=== PATIENT | female | born 1990 | race Two or more races ===

== ENCOUNTER 2017-02-06 11:10 | Emergency (ER) | payer SELFPAY ==
[2017-02-06 11:21] VITALS: BP 127/72
--- NOTE | 2017-02-06 11:39 | EDM.PDOC ---
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 Patient states last menstrual cycle was the first part of November. She took a test at home that was positive. Starting yesterday she developed cramping sensation to her abdomen with mild pain with urination. Pain has also radiated into her lower back bilaterally. There's been no vaginal bleeding, abnormal spotting, abnormal vaginal discharge, or pain with intercourse. She has no prior history of STDs, ectopic pregnancies, or ovarian cyst. She does have a history of UTI December of 2016 and complete a course of antibiotics. She has not been seen by a provider to confirm . She is not taking vitamins at this time. Patient has no additional pertinent past medical history. She is currently taking no medications. No pertinent surgical history as well. Previous history 3 para 2 miscarriages 0, 0. She denies any smoking, alcohol, or regression drug use. Patient denies fever/chills, stress of breath, chest pain, diarrhea, blood in her stool, or any additional complaint. - Related Data Allergies Allergy/AdvReac Type Severity Reaction Status Date / Time nickel Allergy Rash Verified 02/06/17 11:17 Home Meds: Home Meds Cephalexin [Keflex] 500 mg PO QID #28 capsule 02/06/17 [Rx] Doxylamine/Pyridoxine HCl [Robbie Moon 10-10 mg Tablet] 1 each PO TID PRN #25 tablet. 02/06/17 [Rx] Past Medical History - Past Health History Medical/Surgical History: Denies Medical/Surgical History Social & Family History - Tobacco Use Smoking Status *Q: Never Smoker - Recreational Drug Use Recreational Drug Use: No ED ROS GENERAL - Review of Systems Review Of Systems: ROS reveals no pertinent complaints other than HPI. ED EXAM - Physical Exam Exam: See Below Exam Limited By: No Limitations General Appearance: Alert, WD/WN, No Apparent Distress Eye Exam: Bilateral Eye: PERRL Ears: Hearing Grossly Normal Nose: Normal Inspection Throat/Mouth: Normal Voice, No Airway Compromise Neck: Normal Inspection, Supple, Non-Tender Respiratory/Chest: No Respiratory Distress, Lungs Clear, Normal Breath Sounds, No Accessory Muscle Use Cardiovascular: Normal Peripheral Pulses, Regular Rate, Rhythm GI/Abdominal: Normal Bowel Sounds, Soft, No Organomegaly, No Distention, Tender (Suprapubic region) (Female) Exam: Other (Deferred) Back Exam: Normal Inspection. No: CVA Tenderness (L), CVA Tenderness (R) Extremities: Normal Inspection Neurological: Alert, Oriented, CN II-XII Intact, Normal Cognition, No Motor/ Sensory Deficits Psychiatric: Normal Affect, Normal Mood Skin Exam: Warm, Dry, Intact, Normal Color Course - Vital Signs Last Recorded V/S: Last Vital Signs Temp 98.0 F 02/06/17 11:17 Pulse 79 02/06/17 11:17 Resp BP 127/72 02/06/17 11:17 Pulse Ox 100 02/06/17 11:17 - Orders/Labs/Meds Orders: Active Orders 24 hr Category Date Time Status CULTURE URINE [RM] Stat Lab 02/06/17 11:40 Results Labs: Laboratory Tests 02/06/17 02/06/17 02/06/17 Range/Units 11:40 11:45 11:45 WBC 7.69 (3.98-10.04) K/mm3 RBC 4.71 (3.98-5.22) M/mm3 Hgb 13.2 (11.2-15.7) gm/L Hct 38.7 (34.1-44.9) % MCV 82.2 (79.4-94.8) fl MCH 28.0 (25.6-32.2) pg MCHC 34.1 (32.2-35.5) g/dl RDW Std Deviation 39.8 (36.4-46.3) fL Plt Count 317 (182-369) K/mm3 MPV 8.8 L (9.4-12.3) fl Neut % (Auto) 63.9 (34.0-71.1) % Lymph % (Auto) 28.7 (19.3-51.7) % [place] % (Auto) 5.9 (4.7-12.5) % Eos % (Auto) 1.3 (0.7-5.8) Baso % (Auto) 0.1 (0.1-1.2) % Neut # (Auto) 4.91 (1.56-6.13) K/mm3 Lymph # (Auto) 2.21 (1.18-3.74) K/mm3 [place] # (Auto) 0.45 H (0.24-0.36) K/mm3 Eos # (Auto) 0.10 (0.04-0.36) K/mm3 Baso # (Auto) 0.01 (0.01-0.08) K/mm3 Sodium 136 (136-145) mEq/L Potassium 3.5 (3.5-5.1) mEq/L Chloride 100 (98-107) mEq/L Carbon Dioxide 26 (21-32) mEq/L Anion Gap 13.5 (5-15) BUN 8 (7-18) mg/dL Creatinine 0.7 (0.55-1.02) mg/dL Est Cr Clr Drug Dosing 111.51 mL/min Estimated GFR (MDRD) > 60 (>60) mL/min BUN/Creatinine Ratio 11.4 L (14-18) Glucose 92 (74-106) mg/dL Calcium 8.8 (8.5-10.1) mg/dL Total Bilirubin 0.3 (0.2-1.0) mg/dL AST 14 L (15-37) U/L ALT 36 (14-59) U/L Alkaline Phosphatase 81 (46-116) U/L C-Reactive Protein 0.4 (<1.0) mg/dL Total Protein 7.4 (6.4-8.2) g/dl Albumin 3.1 L (3.4-5.0) g/dl Globulin 4.3 gm/dL Albumin/Globulin Ratio 0.7 L (1-2) HCG, Qual (NEGATIVE) HCG, Quant 16339.0 mIU/mL Urine Color Yellow (Yellow) Urine Appearance Cloudy H (Clear) Urine pH 7.5 (5.0-8.0) Ur Specific [place] 1.020 (1.005-1.030) Urine Protein 1+ H (Negative) Urine Glucose (UA) Negative (Negative) Urine Ketones Negative (Negative) Urine Occult Blood Negative (Negative) Urine Nitrite Negative (Negative) Urine Bilirubin Negative (Negative) Urine Urobilinogen 0.2 (0.2-1.0) Ur Leukocyte Esterase 1+ H (Negative) Urine RBC 0-5 (0-5) /hpf Urine WBC 5-10 H (0-5) /hpf Ur Epithelial Cells 5-10 H (0-5) /hpf Amorphous Sediment Many H (NOT SEEN) /hpf Urine Bacteria Moderate H (FEW) /hpf Urine Mucus Not seen (FEW) /hpf // Range/Units 11:45 WBC (3.98-10.04) K/mm3 RBC (3.98-5.22) M/mm3 Hgb (11.2-15.7) gm/L Hct (34.1-44.9) % MCV (79.4-94.8) fl MCH (25.6-32.2) pg MCHC (32.2-35.5) g/dl RDW Std Deviation (36.4-46.3) fL Plt Count (182-369) K/mm3 MPV (9.4-12.3) fl Neut % (Auto) (34.0-71.1) % Lymph % (Auto) (19.3-51.7) % [place] % (Auto) (4.7-12.5) % Eos % (Auto) (0.7-5.8) Baso % (Auto) (0.1-1.2) % Neut # (Auto) (1.56-6.13) K/mm3 Lymph # (Auto) (1.18-3.74) K/mm3 [place] # (Auto) (0.24-0.36) K/mm3 Eos # (Auto) (0.04-0.36) K/mm3 Baso # (Auto) (0.01-0.08) K/mm3 Sodium (136-145) mEq/L Potassium (3.5-5.1) mEq/L Chloride (98-107) mEq/L Carbon Dioxide (21-32) mEq/L Anion Gap (5-15) BUN (7-18) mg/dL Creatinine (0.55-1.02) mg/dL Est Cr Clr Drug Dosing mL/min Estimated GFR (MDRD) (>60) mL/min BUN/Creatinine Ratio (14-18) Glucose (74-106) mg/dL Calcium (8.5-10.1) mg/dL Total Bilirubin (0.2-1.0) mg/dL AST (15-37) U/L ALT (14-59) U/L Alkaline Phosphatase (46-116) U/L C-Reactive Protein (<1.0) mg/dL Total Protein (6.4-8.2) g/dl Albumin (3.4-5.0) g/dl Globulin gm/dL Albumin/Globulin Ratio (1-2) HCG, Qual Positive H (NEGATIVE) HCG, Quant mIU/mL Urine Color (Yellow) Urine Appearance (Clear) Urine pH (5.0-8.0) Ur Specific [place] (1.005-1.030) Urine Protein (Negative) Urine Glucose (UA) (Negative) Urine Ketones (Negative) Urine Occult Blood (Negative) Urine Nitrite (Negative) Urine Bilirubin (Negative) Urine Urobilinogen (0.2-1.0) Ur Leukocyte Esterase (Negative) Urine RBC (0-5) /hpf Urine WBC (0-5) /hpf Ur Epithelial Cells (0-5) /hpf Amorphous Sediment (NOT SEEN) /hpf Urine Bacteria (FEW) /hpf Urine Mucus (FEW) /hpf Meds: Medications Discontinued Medications Generic Name Dose Route Start Last Admin Trade Name Freq PRN Reason Stop Dose Admin Cephalexin 500 mg 02/06/17 13:14 02/06/17 13:20 Keflex PO 02/06/17 13:15 500 mg ONETIME ONE Administration - Re-Assessments/Exams Free Text/Narrative Re-Assessment/Exam: Ordered CBC, chem 14, CRP, HCG qualitative/quantitative, and UA. Gestational age 12 weeks 0 days, due date August 21, 2017, date of conception November 28, 2016. 02/06/17 13:14 labs reviewed: CBC and chem 14 was essentially normal. Patient is with quantitative hCG pending. UA did reveal findings concerning for infection/possible contamination. Urine culture obtained. Due to patient being and having symptoms Will go ahead and treat with Keflex 500 mg 4 times a day for 7 days. Patient will follow-up with her primary care provider to ensure resolution. She can see her GIS MAPPING TECHNICIAN specialist for further evaluation first/second trimester . Departure - Departure Time of Disposition: 13:17 Disposition: Home, Self-Care 01 Condition: Good Clinical Impression: UTI (urinary tract infection) during Qualifiers: Trimester: first trimester Qualified Code(s): O23.41 - Unspecified infection of urinary tract in , first trimester - Discharge Information Prescriptions: Cephalexin [Keflex] 500 mg PO QID #28 capsule Doxylamine/Pyridoxine HCl [Diclegis Dr 10-10 mg Tablet] 1 each PO TID PRN #25 tablet. PRN Reason: Nausea/Vomiting Instructions: Urinary Tract Infection, Adult Referrals: PCP,None [Primary Care Provider] - Fuentes Overton MD [Physician] - Malik Sanchez MD [Physician] - Forms: ED Department Discharge Additional Instructions: Laboratory did reveal you are . Based on last menstrual cycle cycle gestational age is 12 weeks. UA did reveal findings concerning for infection and possible contamination. Urine culture has been obtained. Will treat you with antibiotics Keflex 500 mg 4 times a day for 7 days. Take an over-the- counter probiotic while taking this. Utilize Tylenol for discomfort. Push the fluids. Follow-up with GIS MAPPING TECHNICIAN specialist your choice for further evaluation for . Return to ED as needed for any new or worsening symptoms. For nausea vomiting take likely just one tablet every 8 hours as needed for nausea/ vomiting. - My Orders Last 24 Hours: My Active Orders 02/06/17 11:40 CULTURE URINE [RM] Stat - Assessment/Plan Last 24 Hours: My Active Orders 02/06/17 11:40 CULTURE URINE [RM] Stat
[2017-02-06] MEDS ORDERED: Cephalexin 500 MG Cap PO ONE (13:14)
== END 2017-02-06 13:30 | disposition home or self-care (01) ==
LOC: JD.ED 11:10
DX: O23.41 Unspecified infection of urinary tract in pregnancy, first trimester (principal); Z3A.12 12 weeks gestation of pregnancy
CPT/HCPCS: 36415; 80053; 81001; 84702; 84703; 85025; 86140; 87086; 99284; A9270; 99283

== ENCOUNTER 2017-12-01 16:28 | Emergency (ER) | payer MEDICAID ==
[2017-12-01 16:46] VITALS: BP 122/72
[2017-12-01] MEDS ORDERED: Sodium Chloride 0.9% 10 ML Syringe FLUSH PRN (17:07)
[2017-12-01] MEDS ORDERED: HYDROmorphone 0.5 MG/0.5 ML SYRINGE IVPUSH ONE ×2 (17:07→19:43)
[2017-12-01] MEDS ORDERED: Sodium Chloride 0.9% 1,000 ML IV ONE (17:07)
--- NOTE | 2017-12-01 17:18 | EDM.PDOC ---
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 States the pain is rated 8 out of 10 radiating to her lower back. She's been having some intermittent spotting described as minimal for the past week. She was seen this past by Dr. Moore her DEPUTY CHIEF MAGISTRATE specialist. Ultrasound was obtained that day with no results. She was instructed if symptoms worsen go to the ED. Since being patient has been experiencing morning sickness. States she's been eating and drinking okay. She's had a few episodes of diarrhea today with no blood present. There has been no ingestion of bad or questionable food or recent sick exposures. She has no pain with urination. Denies any recent sexual intercourse. Has been complaining of some thick white discharge with follow order present. She was told not to have any additional sexual intercourse by her DEPUTY CHIEF MAGISTRATE. She has no history of STDs. LMP was the end of September. Hx M0 A0. Patient has no additional medical history and currently taking no medications. She is taking vitamins. Not smoke or use recreational drug use. She's not using alcohol as well. Lower Abdomen Pain Score (Numeric/FACES): 8 - Related Data Allergies Allergy/AdvReac Type Severity Reaction Status Date / Time nickel Allergy Rash Verified 12/01/17 16:47 Home Meds: Home Meds Acetaminophen/HYDROcodone [York 325-5 MG] 1 tab PO Q6H PRN #12 tablet 12/01/17 [Rx] Doxylamine/Pyridoxine HCl [Robbie Moon 10-10 mg Tablet] 1 each PO TID PRN #20 tablet. 12/01/17 [Rx] Vit No.129/Iron/FA [ One Daily Tablet] 1 tab PO DAILY 12/01/17 [History] Past Medical History - Past Health History Medical/Surgical History: Denies Medical/Surgical History - Past Surgical History GI Surgical History: Reports: Cholecystectomy Social & Family History - Family History Family Medical History: Noncontributory - Tobacco Use Smoking Status *Q: Never Smoker - Caffeine Use Caffeine Use: Reports: Soda - Recreational Drug Use Recreational Drug Use: No ED ROS GENERAL - Review of Systems Review Of Systems: See Below Constitutional: Reports: Decreased Appetite. Denies: Fever, Chills HEENT: Reports: No Symptoms Respiratory: Reports: No Symptoms Cardiovascular: Reports: No Symptoms GI/Abdominal: Reports: Abdominal Pain (suprapubic), Diarrhea, Decreased Appetite , Nausea, Vomiting. Denies: Black Stool, Bloody Stool, Constipation, Distension , Flatus, Hematemesis, Hematochezia, Melena : Reports: Discharge (thick white discharge with foul odor). Denies: Dysuria , Flank Pain, Frequency, Hematuria, Incontinence Musculoskeletal: Reports: Back Pain (low back discomfort) Neurological: Reports: No Symptoms ED EXAM - Physical Exam Exam: See Below Exam Limited By: No Limitations General Appearance: Alert, WD/WN, No Apparent Distress Ears: Hearing Grossly Normal Nose: Normal Inspection Throat/Mouth: Normal Voice, No Airway Compromise Neck: Normal Inspection, Supple Respiratory/Chest: No Respiratory Distress, Lungs Clear, Normal Breath Sounds, No Accessory Muscle Use, Chest Non-Tender Cardiovascular: Normal Peripheral Pulses, Regular Rate, Rhythm GI/Abdominal Exam: Normal Bowel Sounds, Soft, No Organomegaly, No Distention, Tender (suprapubic region along the scar. ) (Female) Exam: Normal Speculum Exam, Adnexal Tenderness (right sided), Vaginal Discharge (thick white drainage. ). No: Cervical Dilatation, Cervical Discharge, Cervical Fluid, Cervical Lesions, Products of Conception, Vaginal Bleeding, Vaginal Lesions, Vaginal Tears Back Exam: Normal Inspection. No: CVA Tenderness (L), CVA Tenderness (R) Neurological: Alert, Oriented, CN II-XII Intact, Normal Cognition, No Motor/ Sensory Deficits Psychiatric: Normal Affect, Normal Mood Skin Exam: Warm, Dry, Intact, Normal Color Course - Vital Signs Last Recorded V/S: Last Vital Signs Temp 98.1 F 12/01/17 16:41 Pulse 76 12/01/17 16:41 Resp 16 12/01/17 16:41 BP 122/72 12/01/17 16:41 Pulse Ox 99 12/01/17 16:41 - Orders/Labs/Meds Orders: Active Orders 24 hr Category Date Time Status Peripheral IV Care [RC] . DIRECTED Care 12/01/17 17:07 Active CULTURE URINE [RM] Stat Lab 12/01/17 17:15 Results WET PREP [MYC] Stat Lab 12/01/17 18:24 Ordered Peripheral IV Insertion Adult [OM.PC] Routine Oth 12/01/17 17:07 Ordered Labs: Laboratory Tests 12/01/17 12/01/1718 Range/Units 17:05 17:05 17:15 WBC 9.21 (3.98-10.04) K/mm3 RBC 4.59 (3.98-5.22) M/mm3 Hgb 13.0 (11.2-15.7) gm/L Hct 39.2 (34.1-44.9) % MCV 85.4 (79.4-94.8) fl MCH 28.3 (25.6-32.2) pg MCHC 33.2 (32.2-35.5) g/dl RDW Std Deviation 39.5 (36.4-46.3) fL Plt Count 329 (182-369) K/mm3 MPV 9.5 (9.4-12.3) fl Neutrophils % (Manual) 57 (40-60) % Band Neutrophils % 0 (0-10) % Lymphocytes % (Manual) 37 (20-40) % Atypical Lymphs % 0 % Monocytes % (Manual) 4 (2-10) % Eosinophils % (Manual) 1 (0.7-5.8) % Basophils % (Manual) 1 (0.1-1.2) Platelet Estimate Adequate RBC Morph Comment Normal Sodium 134 L (136-145) mEq/L Potassium 3.6 (3.5-5.1) mEq/L Chloride 103 (98-107) mEq/L Carbon Dioxide 25 (21-32) mEq/L Anion Gap 9.6 (5-15) BUN 15 (7-18) mg/dL Creatinine 0.8 (0.55-1.02) mg/dL Est Cr Clr Drug Dosing 96.73 mL/min Estimated GFR (MDRD) > 60 (>60) mL/min BUN/Creatinine Ratio 18.8 H (14-18) Glucose 93 (74-106) mg/dL Calcium 8.6 (8.5-10.1) mg/dL Total Bilirubin 0.2 (0.2-1.0) mg/dL AST 10 L (15-37) U/L ALT 30 (14-59) U/L Alkaline Phosphatase 93 (46-116) U/L Total Protein 7.1 (6.4-8.2) g/dl Albumin 3.4 (3.4-5.0) g/dl Globulin 3.7 gm/dL Albumin/Globulin Ratio 0.9 L (1-2) HCG, Quant 9197.0 mIU/mL Urine Color Yellow (Yellow) Urine Appearance Slt cloudy H (Clear) Urine pH 7.0 (5.0-8.0) Ur Specific [place] 1.025 (1.005-1.030) Urine Protein Trace H (Negative) Urine Glucose (UA) Negative (Negative) Urine Ketones Negative (Negative) Urine Occult Blood Negative (Negative) Urine Nitrite Positive H (Negative) Urine Bilirubin Negative (Negative) Urine Urobilinogen 0.2 (0.2-1.0) Ur Leukocyte Esterase Negative (Negative) Urine RBC Not seen (0-5) /hpf Urine WBC 0-5 (0-5) /hpf Ur Epithelial Cells 0-5 (0-5) /hpf Urine Bacteria Moderate H (FEW) /hpf Urine Mucus Not seen (FEW) /hpf C trachomatis DNA (PCR) N gonorrhoeae DNA (PCR) 12/01/17 Range/Units 18:24 WBC (3.98-10.04) K/mm3 RBC (3.98-5.22) M/mm3 Hgb (11.2-15.7) gm/L Hct (34.1-44.9) % MCV (79.4-94.8) fl MCH (25.6-32.2) pg MCHC (32.2-35.5) g/dl RDW Std Deviation (36.4-46.3) fL Plt Count (182-369) K/mm3 MPV (9.4-12.3) fl Neutrophils % (Manual) (40-60) % Band Neutrophils % (0-10) % Lymphocytes % (Manual) (20-40) % Atypical Lymphs % % Monocytes % (Manual) (2-10) % Eosinophils % (Manual) (0.7-5.8) % Basophils % (Manual) (0.1-1.2) Platelet Estimate RBC Morph Comment Sodium (136-145) mEq/L Potassium (3.5-5.1) mEq/L Chloride (98-107) mEq/L Carbon Dioxide (21-32) mEq/L Anion Gap (5-15) BUN (7-18) mg/dL Creatinine (0.55-1.02) mg/dL Est Cr Clr Drug Dosing mL/min Estimated GFR (MDRD) (>60) mL/min BUN/Creatinine Ratio (14-18) Glucose (74-106) mg/dL Calcium (8.5-10.1) mg/dL Total Bilirubin (0.2-1.0) mg/dL AST (15-37) U/L ALT (14-59) U/L Alkaline Phosphatase (46-116) U/L Total Protein (6.4-8.2) g/dl Albumin (3.4-5.0) g/dl Globulin gm/dL Albumin/Globulin Ratio (1-2) HCG, Quant mIU/mL Urine Color (Yellow) Urine Appearance (Clear) Urine pH (5.0-8.0) Ur Specific [place] (1.005-1.030) Urine Protein (Negative) Urine Glucose (UA) (Negative) Urine Ketones (Negative) Urine Occult Blood (Negative) Urine Nitrite (Negative) Urine Bilirubin (Negative) Urine Urobilinogen (0.2-1.0) Ur Leukocyte Esterase (Negative) Urine RBC (0-5) /hpf Urine WBC (0-5) /hpf Ur Epithelial Cells (0-5) /hpf Urine Bacteria (FEW) /hpf Urine Mucus (FEW) /hpf C trachomatis DNA (PCR) Not detected N gonorrhoeae DNA (PCR) Not detected Meds: Medications Discontinued Medications Generic Name Dose Route Start Last Admin Trade Name Freq PRN Reason Stop Dose Admin Hydromorphone HCl 0.25 mg 12/01/17 17:07 12/01/17 17:36 Dilaudid IVPUSH 12/01/17 17:08 0.25 mg ONETIME ONE Administration Hydromorphone HCl 0.25 mg 12/01/17 19:43 12/01/17 19:57 Dilaudid IVPUSH 12/01/17 19:44 0.25 mg ONETIME ONE Administration Sodium Chloride 1,000 mls @ 999 mls/hr 12/01/17 17:07 12/01/17 17:37 Normal Saline IV 12/01/17 18:07 999 mls/hr ONETIME ONE Administration Sodium Chloride 10 ml 12/01/17 17:07 12/01/17 17:39 Saline Flush FLUSH 10 ml ASDIRECTED PRN Administration Keep Vein Open - Re-Assessments/Exams Free Text/Narrative Re-Assessment/Exam: IV will be established with Dilaudid 0.25 IVP and normal saline 999 mls per hour. Initial labs and studies include CBC, chem 14, hCG quantitative, UA , and wet prep. Labs reviewed: CBC and chemistry panel essentially normal. HCG 9197. UA slightly cloudy with trace protein, positive nitrates, moderate bacteria. Urine wbc's 0-5. Leukocyte esterase negative. I did obtain a urine culture. Wet prep results: Yeast none, Trichomonas none, clue cells few, wbc's rare, RBCs none, epithelial many, Trichomonas rapid antigen negative. 12/01/17 19:02 US OB Vaginal obtained 11/26/2017: Possible tiny intrauterine gestational sac measuring 0.4cm. A yolk sac and pole are not visualized. This likely represents an early intrauterine , but correlation with beta hcg and close followup is recommended to document intrauterine and fully exclude ectopic pregancy. Simple appearing left ovarian cyst measuring up to 3.2cm. Small amount of pelvic free fluid. Ordered OB transvaginal ultrasound to rule out ectopic . Labs reviewed: CBC and chemistry panel essentially normal. HCG 9197. UA slightly cloudy with trace protein, positive nitrates, moderate bacteria. Urine wbc's 0-5. Leukocyte esterase negative. I did obtain a urine culture. Wet prep results: Yeast none, Trichomonas none, clue cells few, wbc's rare, RBCs none, epithelial many, Trichomonas rapid antigen negative. 12/01/17 19:44 Per nursing staff patient having lower abdominal cramping again. Ordered dilaudid 0.25mg IVP. 12/01/17 20:22 ultrasound transvaginal: Gestational sac is noted within the uterus with a yolk sac. Findings most likely related to early . Average sac size corresponds to gestational age of 5 weeks 4 days. No evidence of pole at this time. Left adnexal cyst. [address] Moore. Suggested followup with Wednesday and or next A[place]ha. Call for an appt tomorrow. Discharge with a few pain medications would be okay. Departure - Departure Time of Disposition: 20:27 Disposition: Home, Self-Care 01 Condition: Good Clinical Impression: Abdominal cramping in right lower quadrant - Discharge Information Prescriptions: Acetaminophen/HYDROcodone [York 325-5 MG] 1 tab PO Q6H PRN #12 tablet PRN Reason: Pain (Severe 7-10) Doxylamine/Pyridoxine HCl [Diclegis Dr 10-10 mg Tablet] 1 each PO TID PRN #20 tablet.dr PRN Reason: Nausea/Vomiting Instructions: Pain Medicine Instructions, [id number], Abdominal Pain During Referrals: Etta Moore MD [Primary Care Provider] - Forms: ED Department Discharge Additional Instructions: As discussed I have spoken with Dr. Ojeda she requested to follow-up in her clinic on Wednesday or this coming Wednesday. Call and make an appointment tomorrow. Push the fluids. For pain take York one tab every 6 hours as needed. This is only for severe pain. May utilize Tylenol 650 mg every 6 hours as needed for any mild to moderate discomfort. Do not take York and Tylenol together. For nausea may take diclegis as prescribed. Refrain from sexual intercourse. Return to the ED if you develop any new or worsening symptoms. - My Orders Last 24 Hours: My Active Orders 12/01/17 17:07 Peripheral IV Care [RC] . DIRECTED Peripheral IV Insertion Adult [OM.PC] Routine 12/01/17 17:15 CULTURE URINE [RM] Stat 12/01/17 18:24 WET PREP [MYC] Stat - Assessment/Plan Last 24 Hours: My Active Orders 12/01/17 17:07 Peripheral IV Care [RC] . DIRECTED Peripheral IV Insertion Adult [OM.PC] Routine 12/01/17 17:15 CULTURE URINE [RM] Stat 12/01/17 18:24 WET PREP [MYC] Stat
[2017-12-01 22:50] LABS: C. TRACHOMATIS BY PCR NOT DETECTED; N. GONORRHOEAE BY PCR NOT DETECTED
--- NOTE | 2017-12-02 06:59 | US ---
First trimester obstetrical ultrasound: Multiple real-time images were obtained transvaginally. Comparison: No previous study. Dates: LMP: LMP given as 10/06/17, MARII 07/13/18, gestational age 8 weeks 0 days Current ultrasound: MARII 07/30/18, gestational age 5 weeks 4 days Single intrauterine gestational sac is seen. Yolk sac is identified but no pole seen at this time. Simple 3.8 cm cyst noted within the maternal left ovary. Maternal right ovary is unremarkable. Small amount of free fluid is seen within the pelvis which is likely incidental. Measurements: Gestational sac: 1.01 cm - 5 weeks 4 days Heart rate: None seen, likely due to early gestational age Impression: 1. Small gestational sac. Dates as noted above. 2. Yolk sac seen with no pole. This is most likely due to early age of . Recommend follow-up study in 11 days. 3. Simple 3.8 cm cyst within the maternal left ovary. Diagnostic code #2 I agree with preliminary report issued by [facility] ([facility] preliminary report dictated on 12/01/17, 9:19 PM Central Time)
== END 2017-12-01 20:49 | disposition home or self-care (01) ==
LOC: JD.ED 16:28
DX: O99.89 Other specified diseases and conditions complicating pregnancy, childbirth and the puerperium (principal); R10.31 Right lower quadrant pain; Z91.048 Other nonmedicinal substance allergy status
CPT/HCPCS: 36415; 76817; 80053; 81001; 84702; 85025; 87086; 87088; 87186; 87210; 87491; 87591; 87808; 96361; 96374; 96376; 99284; J1170; J7040; J7050

== ENCOUNTER 2017-12-08 16:06 | Emergency (ER) | payer MEDICAID ==
[2017-12-08 16:21] VITALS: BP 117/72
[2017-12-08] MEDS ORDERED: Sodium Chloride 0.9% 1,000 ML IV ONE (17:17)
[2017-12-08] MEDS ORDERED: Ondansetron 4 MG/2 ML SDV IVPUSH ONE (17:18)
[2017-12-08] MEDS ORDERED: Sodium Chloride 0.9% 10 ML Syringe FLUSH PRN (17:18)
[2017-12-08] MEDS ORDERED: HYDROmorphone 0.5 MG/0.5 ML SYRINGE IVPUSH ONE (17:21)
[2017-12-08] MEDS ORDERED: Acetaminophen 325 MG Tab PO ONE (18:46)
--- NOTE | 2017-12-08 19:10 | US ---
First trimester obstetrical ultrasound: Multiple real-time images were obtained transvaginally. Comparison: Previous obstetrical ultrasound of 12/01/17. Dates: Current ultrasound: MARII 07/30/18, gestational age 6 weeks 4 days Earliest ultrasound (12/01/17): MARII 07/30/18, gestational age 6 weeks 4 days Single intrauterine gestation is seen. Amniotic fluid volume is normal. Yolk sac and pole are seen. No subchorionic hemorrhage is identified. Small cys is t noted within the left ovary measuring 3.2 cm which is felt to be incidental. The cyst measured 3.8 cm on prior study. Small amount of free fluid is seen also felt to be incidental. Measurements: Carter-rump length: 0.47 cm - 6 weeks 1 day Gestational sac: 2.24 cm - 7 weeks 0 days Heart rate: 112 BPM Impression: 1. Single intrauterine gestation. Dates as noted above. 2. No complicating process is identified by ultrasound at this time. Diagnostic code #2
[2017-12-08] MEDS ORDERED: cefTRIAXone 1 GM in Sodium Chloride 0.9% 100 ML IV ONE (19:49)
[2017-12-08] MEDS ORDERED: Acetaminophen/HYDROcodone 325-10 MG Tab PO ONE (19:53)
[2017-12-08] MEDS ORDERED: Sodium Chloride 0.9% 500 ML IV ONE (20:24)
--- NOTE | 2017-12-08 21:11 | EDM.PDOC ---
ED HPI GENERAL MEDICAL PROBLEM - General Chief Complaint: Syncope Stated Complaint: SYNCOPE- EARLY Time Seen by Provider: 12/08/17 17:00 Source of Information: Reports: Patient History Limitations: Reports: No Limitations - History of Present Illness INITIAL COMMENTS - FREE TEXT/NARRATIVE: 27-year-old female presents for evaluation and treatment of low back pain, abdominal cramping, nausea and vomiting. Patient reports that she is currently . She is unsure how far along she is; she reports that her last period was the end of September. She reports associated symptoms of dizziness and lightheadedness. She states she is vomiting about 6 times today. No syncope, cough or cold symptoms or fevers. Patient is a 011. Patient is currently on a vitamin. Patient was seen in the ER about 1 week ago with similar symptoms. She states that her symptoms have been constant since being seen. She had an ultrasound done as well as a complete workup. She was prescribed diclegis and Sharps. Reports she was unable to fill these medications that she did not have money to pay for them and her insurance is not yet . Review of records also shows she had Escherichia coli in her urine. The PA did call her 2 days later to start her on Macrobid. She is unaware of any antibiotics. She did not fill these. TOUR MANAGER Dr. Ojeda. She is scheduled see Dr. Ojeda tomorrow. Abdomen Pain Score (Numeric/FACES): 8 - Related Data Allergies Allergy/AdvReac Type Severity Reaction Status Date / Time nickel Allergy Rash Verified 12/08/17 16:21 Home Meds: Home Meds Doxylamine/Pyridoxine HCl [Robbie Moon 10-10 mg Tablet] 1 each PO TID PRN #20 tablet. 12/01/17 [Rx] Vit No.129/Iron/FA [ One Daily Tablet] 1 tab PO DAILY 12/01/17 [History] Cephalexin 500 mg PO BID #20 tablet 12/08/17 [Rx] Past Medical History - Past Health History Medical/Surgical History: Denies Medical/Surgical History - Past Surgical History GI Surgical History: Reports: Cholecystectomy Female Surgical History: Reports: Section Social & Family History - Family History Family Medical History: Noncontributory - Tobacco Use Smoking Status *Q: Never Smoker - Caffeine Use Caffeine Use: Reports: None - Recreational Drug Use Recreational Drug Use: No ED ROS GENERAL - Review of Systems Review Of Systems: See Below Constitutional: Denies: Fever Respiratory: Denies: Cough GI/Abdominal: Reports: Abdominal Pain (For abdominal cramping), Nausea, Vomiting : Reports: No Symptoms, Other (No vaginal bleeding) Musculoskeletal: Reports: Back Pain Neurological: Denies: Syncope ED EXAM - Physical Exam Exam: See Below Exam Limited By: No Limitations General Appearance: Alert, WD/WN, Mild Distress, Obese Ears: Normal External Exam Nose: Normal Inspection Throat/Mouth: Normal Inspection, Normal Voice, No Airway Compromise Respiratory/Chest: No Respiratory Distress, Lungs Clear, Normal Breath Sounds Cardiovascular: Normal Peripheral Pulses, Regular Rate, Rhythm, No Murmur GI/Abdominal Exam: Normal Bowel Sounds, Soft, Non-Tender Heart Tones: Present Heart Tones per Min: 112 (On transvaginal ultrasound) Neurological: Alert, Oriented, Normal Cognition Psychiatric: Normal Affect, Normal Mood Skin Exam: Warm, Dry, Normal Color Course - Vital Signs Last Recorded V/S: Last Vital Signs Temp 36.3 C 12/08/17 16:15 Pulse 84 12/08/17 16:15 Resp 16 12/08/17 16:15 BP 117/72 12/08/17 16:15 Pulse Ox 100 12/08/17 16:15 Orthostatic Blood Pressure [ 122/72 Standing] Orthostatic Blood Pressure [ 113/71 Sitting] Orthostatic Blood Pressure [ 116/67 Supine] - Orders/Labs/Meds Orders: Active Orders 24 hr Category Date Time Status Orthostatic Vital Signs [RC] ASDIRECTED Care 12/08/17 17:20 Active Peripheral IV Care [RC] . DIRECTED Care 12/08/17 17:18 Active CULTURE URINE [RM] Stat Lab 12/08/17 17:18 Ordered UA W/MICROSCOPIC [URIN] Stat Lab 12/08/17 17:18 Ordered Peripheral IV Insertion Adult [OM.PC] Routine Oth 12/08/17 17:17 Ordered Labs: Laboratory Tests 12/08/17 12/08/17 Range/Units 17:50 17:50 WBC 10.10 H (3.98-10.04) K/mm3 RBC 4.56 (3.98-5.22) M/mm3 Hgb 12.9 (11.2-15.7) gm/L Hct 38.4 (34.1-44.9) % MCV 84.2 (79.4-94.8) fl MCH 28.3 (25.6-32.2) pg MCHC 33.6 (32.2-35.5) g/dl RDW Std Deviation 37.9 (36.4-46.3) fL Plt Count 361 (182-369) K/mm3 MPV 9.3 L (9.4-12.3) fl Neutrophils % (Manual) 61 H (40-60) % Band Neutrophils % 0 (0-10) % Lymphocytes % (Manual) 33 (20-40) % Atypical Lymphs % 0 % Monocytes % (Manual) 4 (2-10) % Eosinophils % (Manual) 2 (0.7-5.8) % Basophils % (Manual) 0 L (0.1-1.2) Toxic Granulation 1+ slight Platelet Estimate Adequate Plt Morphology Comment Normal RBC Morph Comment Normal Sodium 136 (136-145) mEq/L Potassium 3.6 (3.5-5.1) mEq/L Chloride 101 (98-107) mEq/L Carbon Dioxide 26 (21-32) mEq/L Anion Gap 12.6 (5-15) BUN 11 (7-18) mg/dL Creatinine 0.8 (0.55-1.02) mg/dL Est Cr Clr Drug Dosing 96.73 mL/min Estimated GFR (MDRD) > 60 (>60) mL/min BUN/Creatinine Ratio 13.8 L (14-18) Glucose 83 (74-106) mg/dL Calcium 9.1 (8.5-10.1) mg/dL Total Bilirubin 0.4 (0.2-1.0) mg/dL AST 16 (15-37) U/L ALT 23 (14-59) U/L Alkaline Phosphatase 79 (46-116) U/L C-Reactive Protein 0.8 (<1.0) mg/dL Total Protein 7.4 (6.4-8.2) g/dl Albumin 3.6 (3.4-5.0) g/dl Globulin 3.8 gm/dL Albumin/Globulin Ratio 1.0 (1-2) HCG, Quant 01020.0 mIU/mL Meds: Medications Discontinued Medications Generic Name Dose Route Start Last Admin Trade Name Freq PRN Reason Stop Dose Admin Acetaminophen 975 mg 12/08/17 18:46 12/08/17 18:57 Tylenol PO 12/08/17 18:47 975 mg NOW ONE Administration Hydrocodone Bitart/Acetaminophen 1 tab 12/08/17 19:53 12/08/17 20:08 Sharps 325-10 Mg PO 12/08/17 19:54 1 tab ONETIME ONE Administration Hydromorphone HCl 0.5 mg 12/08/17 17:21 12/08/17 18:03 Dilaudid IVPUSH 12/08/17 17:22 0.5 mg ONETIME ONE Administration Sodium Chloride 1,000 mls @ 999 mls/hr 12/08/17 17:17 12/08/17 18:45 Normal Saline IV 12/08/17 18:17 999 mls/hr ONETIME ONE Administration Ceftriaxone Sodium 1 gm/ 100 mls @ 200 mls/hr 12/08/17 19:49 12/08/17 20:07 Sodium Chloride IV 12/08/17 20:18 200 mls/hr ONETIME ONE Administration Sodium Chloride 500 mls @ 999 mls/hr 12/08/17 20:24 12/08/17 20:36 Normal Saline IV 12/08/17 20:54 999 mls/hr ONETIME ONE Administration Ondansetron HCl 4 mg 12/08/17 17:18 12/08/17 18:01 Zofran IVPUSH 12/08/17 17:19 4 mg ONETIME ONE Administration Sodium Chloride 10 ml 12/08/17 17:18 12/08/17 18:59 Saline Flush FLUSH 10 ml ASDIRECTED PRN Administration Keep Vein Open - Radiology Interpretation Free Text/Narrative:: First trimester obstetrical ultrasound: Multiple real-time images were obtained transvaginally. Comparison: Previous obstetrical ultrasound of 12/01/17. Dates: Current ultrasound: [facility] 07/30/18, gestational age 6 weeks 4 days Earliest ultrasound (12/01/17): [facility] 07/30/18, gestational age 6 weeks 4 days Single intrauterine gestation is seen. Amniotic fluid volume is normal. Yolk sac and pole are seen. No subchorionic hemorrhage is identified. Small cys is t noted within the left ovary measuring 3.2 cm which is felt to be incidental. The cyst measured 3.8 cm on prior study. Small amount of free fluid is seen also felt to be incidental. Measurements: [place]-rump length: 0.47 cm - 6 weeks 1 day Gestational sac: 2.24 cm - 7 weeks 0 days Heart rate: 112 BPM Impression: 1. Single intrauterine gestation. Dates as noted above. 2. No complicating process is identified by ultrasound at this time. - Re-Assessments/Exams Free Text/Narrative Re-Assessment/Exam: 12/08/17 21:03 I reviewed the labs and ultrasound results with the patient. She did not respond well to the Dilaudid but did better with the by mouth Tylenol and by mouth Sharps. I will give her some Rocephin here in the ER. She's been unable to give us a urine sample but with Escherichia coli seen on her recent urine culture I did feel he could be appropriate to treat her tonight. Urine culture does show that this was susceptible to Rocephin. Plan will be to start her on Keflex. She can continue on the Sharps as prescribed. I will give her a few tablets Zofran she was unable to for the diclegis. We did talk want the diclegis compound compounded by [facility] that is similar to diclegis but she has not had money to pick that as well. I will have her follow-up with OB tomorrow as planned. Discharge instructions as documented. Departure - Departure Time of Disposition: 21:05 Disposition: Home, Self-Care 01 Condition: Fair Clinical Impression: Urinary tract infection - Discharge Information Prescriptions: Cephalexin 500 mg PO BID #20 tablet Instructions: Urinary Tract Infection, Adult, [id number] Referrals: Etta Moore MD [Primary Care Provider] - Forms: ED Department Discharge Additional Instructions: Your given medication the other can affect your ability to drive and operate machinery. Do not drive or operate machinery within 12 hours of taking prescription narcotic pain medication. Take the cephalexin 1 tab twice a day for 10 days. [id number] Tylenol as needed for pain relief. Do not take more than 4 g of Tylenol from all sources in 1 day. For pain not relieved by Tylenol you may take the Sharps that was prescribed to last week. Follow-up with your TOUR MANAGER provider tomorrow as planned. Zofran 1 tab sublingual every 8 hours as needed for nausea. make Sure you're drinking plenty of fluids. Please return to the ER if your symptoms change or worsen. - My Orders Last 24 Hours: My Active Orders 12/08/17 17:17 Peripheral IV Insertion Adult [OM.PC] Routine 12/08/17 17:18 Peripheral IV Care [RC] . DIRECTED CULTURE URINE [RM] Stat UA W/MICROSCOPIC [URIN] Stat 12/08/17 17:20 Orthostatic Vital Signs [RC] ASDIRECTED - Assessment/Plan Last 24 Hours: My Active Orders 12/08/17 17:17 Peripheral IV Insertion Adult [OM.PC] Routine 12/08/17 17:18 Peripheral IV Care [RC] . DIRECTED CULTURE URINE [RM] Stat UA W/MICROSCOPIC [URIN] Stat 12/08/17 17:20 Orthostatic Vital Signs [RC] ASDIRECTED
== END 2017-12-08 21:30 | disposition home or self-care (01) ==
LOC: JD.ED 16:06
DX: O23.40 Unspecified infection of urinary tract in pregnancy, unspecified trimester (principal); Z91.048 Other nonmedicinal substance allergy status
CPT/HCPCS: 36415; 76817; 80053; 84702; 85025; 86140; 96361; 96365; 96375; 99284; A9270; J0696; J1170; J2405; J7030; J7040; J7050

== ENCOUNTER 2017-12-10 10:37 | Emergency (ER) | payer MEDICAID ==
--- NOTE | 2017-12-10 11:01 | EDM.PDOC ---
ED HPI GENERAL MEDICAL PROBLEM - General Chief Complaint: Abdominal Pain Stated Complaint: 5 WEEKS PREG CHEST PAIN AND ABD PAIN Time Seen by Provider: 12/10/17 10:59 Source of Information: Reports: Patient - History of Present Illness INITIAL COMMENTS - FREE TEXT/NARRATIVE: Patient presents to ER for the third time this week for evaluation of nausea and vomiting. She is now having some lower back pain. Patient is approximately 6 weeks . She is . Her aunt has custody of 2 of her oldest children, patient's 2-year-old daughter is currently living with her. Patient states that she continues to have some left lower quadrant abdominal pain. She has bilateral lower back pain. She has had significant nausea and vomiting. Patient states that her previous 3 pregnancies were fairly uneventful. 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 She denies any specific injury to her back. She has not been lifting HER-2- year-old daughter. Patient's back pain is localized to bilateral lower back. She's had no loss of bowel or bladder function. The pain does not radiate down either lower extremity. Patient tried eating this morning at [employer] and has had vomiting since that time. She took a Zofran yesterday also has hydrocodone which she took for the pain but states that this made the vomiting worse. She was recently treated for a UTI and prescribed cephalexin but it does not sound like she took this. Patient has had a total of 4 ultrasounds per her report. Ultrasound performed here on 12/01/2016 did not demonstrate the pole, however repeat ultrasound on her 12/08/2017 visit demonstrated a single viable intrauterine . There was a 3.8 cm ovarian cyst visualized on ultrasound as well. CBC/CMP unremarkable previous visits. Her hCG was rising appropriately. Patient's OB is Dr Price Lower Back Pain Score (Numeric/FACES): 8 Lower Abdominal Pain Score (Numeric/FACES): 8 - Related Data Allergies Allergy/AdvReac Type Severity Reaction Status Date / Time nickel Allergy Rash Verified 12/10/17 10:44 Home Meds: Home Meds Vit No.129/Iron/FA [ One Daily Tablet] 1 tab PO DAILY 12/01/17 [History] Doxylamine/Pyridoxine HCl [Robbie Moon 10-10 mg Tablet] 1 - 2 each PO BEDTIME PRN #15 tablet. 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 Denies: Fever, Chills, Decreased Appetite HEENT: Reports: No Symptoms Respiratory: Reports: No Symptoms Cardiovascular: Reports: No Symptoms GI/Abdominal: Reports: Abdominal Pain, Nausea, Vomiting. Denies: Black Stool, Bloody Stool, Diarrhea, Decreased Appetite, Hematochezia : Denies: Discharge, Dysuria, Flank Pain, Frequency, Hematuria Musculoskeletal: Reports: Back Pain, Muscle Pain, Muscle Stiffness Skin: Reports: No Symptoms Neurological: Reports: No Symptoms Psychiatric: Reports: No Symptoms ED EXAM, RENAL/ - Physical Exam Exam: See Below Exam Limited By: No Limitations General Appearance: Alert, WD/WN, Anxious, Mild Distress Ears: Normal External Exam, Normal Canal, Normal TMs Nose: Normal Inspection, Normal Mucosa Throat/Mouth: Normal Inspection, Normal Oropharynx Head: Atraumatic, Normocephalic Neck: Normal Inspection, Supple, Non-Tender Respiratory/Chest: No Respiratory Distress, Lungs Clear, Normal Breath Sounds, No Accessory Muscle Use Cardiovascular: Normal Peripheral Pulses, Regular Rate, Rhythm, No Murmur GI/Abdominal: Normal Bowel Sounds, Soft, Tender (LLQ tenderness), Other (No CVA tenderness) Back Exam: Normal Inspection, Full Range of Motion, Muscle Spasm, Paraspinal Tenderness, Other (Bilateral SIJ and paraspinous muscle tenderness. SLR negative bilaterally.). No: CVA Tenderness (L), CVA Tenderness (R), Vertebral Tenderness Extremities: Normal Inspection, Normal Range of Motion Neurological: Alert, Oriented, No Motor/Sensory Deficits Psychiatric: Anxious Skin Exam: Dry, Intact Course - Vital Signs Last Recorded V/S: Last Vital Signs Temp 97.3 F 12/10/17 10:48 Pulse 76 12/10/17 10:48 Resp 18 12/10/17 10:48 BP 120/69 12/10/17 10:48 Pulse Ox 100 12/10/17 10:48 - Orders/Labs/Meds Orders: Active Orders 24 hr Category Date Time Status UA W/MICROSCOPIC [URIN] Stat Lab 12/10/17 13:10 Ordered Labs: Laboratory Tests 12/10/17 12/10/17 12/10/17 Range/Units 11:40 11:40 13:10 WBC 7.42 (3.98-10.04) K/mm3 RBC 4.27 (3.98-5.22) M/mm3 Hgb 12.2 (11.2-15.7) gm/L Hct 36.5 (34.1-44.9) % MCV 85.5 (79.4-94.8) fl MCH 28.6 (25.6-32.2) pg MCHC 33.4 (32.2-35.5) g/dl RDW Std Deviation 37.7 (36.4-46.3) fL Plt Count 303 (182-369) K/mm3 MPV 9.2 L (9.4-12.3) fl Neutrophils % (Manual) 58 (40-60) % Band Neutrophils % 0 (0-10) % Lymphocytes % (Manual) 40 (20-40) % Atypical Lymphs % 0 % Monocytes % (Manual) 1 L (2-10) % Eosinophils % (Manual) 1 (0.7-5.8) % Basophils % (Manual) 0 L (0.1-1.2) Platelet Estimate Adequate RBC Morph Comment Normal Sodium 135 L (136-145) mEq/L Potassium 3.6 (3.5-5.1) mEq/L Chloride 103 (98-107) mEq/L Carbon Dioxide 25 (21-32) mEq/L Anion Gap 10.6 (5-15) BUN 11 (7-18) mg/dL Creatinine 0.8 (0.55-1.02) mg/dL Est Cr Clr Drug Dosing 96.73 mL/min Estimated GFR (MDRD) > 60 (>60) mL/min BUN/Creatinine Ratio 13.8 L (14-18) Glucose 96 (74-106) mg/dL Calcium 8.6 (8.5-10.1) mg/dL Total Bilirubin 0.3 (0.2-1.0) mg/dL AST 19 (15-37) U/L ALT 29 (14-59) U/L Alkaline Phosphatase 71 (46-116) U/L C-Reactive Protein 0.6 (<1.0) mg/dL Total Protein 6.6 (6.4-8.2) g/dl Albumin 3.2 L (3.4-5.0) g/dl Globulin 3.4 gm/dL Albumin/Globulin Ratio 0.9 L (1-2) Urine Color Light yellow (Yellow) Urine Appearance Clear (Clear) Urine pH 7.0 (5.0-8.0) Ur Specific [place] 1.015 (1.005-1.030) Urine Protein Negative (Negative) Urine Glucose (UA) Negative (Negative) Urine Ketones Negative (Negative) Urine Occult Blood Negative (Negative) Urine Nitrite Negative (Negative) Urine Bilirubin Negative (Negative) Urine Urobilinogen 0.2 (0.2-1.0) Ur Leukocyte Esterase Negative (Negative) Urine RBC Not seen (0-5) /hpf Urine WBC 0-5 (0-5) /hpf Ur Epithelial Cells 0-5 (0-5) /hpf Urine Bacteria Few (FEW) /hpf Urine Mucus Not seen (FEW) /hpf Meds: Medications Discontinued Medications Generic Name Dose Route Start Last Admin Trade Name Freq PRN Reason Stop Dose Admin Acetaminophen 650 mg 12/10/17 12:03 12/10/17 12:24 Tylenol PO 12/10/17 12:04 650 mg NOW ONE Administration Sodium Chloride 1,000 mls @ 999 mls/hr 12/10/17 11:16 12/10/17 11:44 Normal Saline IV 12/10/17 12:16 999 mls/hr ONETIME ONE Administration Ondansetron HCl 4 mg 12/10/17 11:19 12/10/17 11:45 Zofran IVPUSH 12/10/17 11:20 4 mg ONETIME ONE Administration - Re-Assessments/Exams Free Text/Narrative Re-Assessment/Exam: Patient very uncomfortable initially. She did have small emesis in the room. IV normal saline and 4 mg IV Zofran given. Will get basic lab work and repeat her urinalysis. After Zofran patient states that she is "starving" she attempts to eat [employer] that her significant other has brought into the room. I recommend that she does not eat this at this time until we have her lab results back. 650 mg Tylenol by mouth was given for her back pain. Discussed with patient will start with this as it is safest with her and she is agreeable. 12/10/17 12:40 Patient's pelvic pain is significantly improved with Tylenol. CBC/CMP are unremarkable. Urinalysis demonstrates NO infection. Will discharge patient home on Diclegis. She is to continue continue to push oral fluids. Advance diet as tolerated advised patient to avoid fast food, spicy foods and dairy. Recommend a bland/BRAT diet. Tylenol 650 mg every 4-6 hours as needed for pain. She will need to follow-up with OB this week or certainly return to the emergency room if needed. 12/10/17 14:06 Departure - Departure Time of Disposition: 13:53 Disposition: Home, Self-Care 01 Condition: Fair Clinical Impression: Vomiting during Low back pain Qualifiers: Chronicity: acute Back pain laterality: bilateral Sciatica presence: without sciatica Qualified Code(s): M54.5 - Low back pain - Discharge Information Prescriptions: Doxylamine/Pyridoxine HCl [Robbie Moon 10-10 mg Tablet] 1 - 2 each PO BEDTIME PRN #15 tablet. PRN Reason: Nausea Instructions: Nausea and Vomiting, Adult, [id number] Referrals: Etta Moore MD [Primary Care Provider] - Forms: ED Department Discharge Additional Instructions: You were evaluated in the emergency room for vomiting during . I have sent a prescription called Robbie to pharmacy to be taken at bedtime to help with the nausea and vomiting. You need to follow up with OB Either at [place] [phone] or [facility] [phone]. Very bland diet, no sugar/spice/dairy Continue to drink lots of fluids. Tylenol 650mg every 4-6 hours as needed for your back pain. Return to ER if needed. - My Orders Last 24 Hours: My Active Orders 12/10/17 13:10 UA W/MICROSCOPIC [URIN] Stat - Assessment/Plan Last 24 Hours: My Active Orders 12/10/17 13:10 UA W/MICROSCOPIC [URIN] Stat
[2017-12-10] MEDS ORDERED: Sodium Chloride 0.9% 1,000 ML IV ONE (11:16)
[2017-12-10] MEDS ORDERED: Ondansetron 4 MG/2 ML SDV IVPUSH ONE (11:19)
[2017-12-10] MEDS ORDERED: Acetaminophen 325 MG Tab PO ONE (12:03)
[2017-12-10 14:40] VITALS: BP 99/53
== END 2017-12-10 14:20 | disposition home or self-care (01) ==
LOC: JD.ED 10:37
DX: O21.9 Vomiting of pregnancy, unspecified (principal); M54.5 Low back pain; Z91.048 Other nonmedicinal substance allergy status; Z3A.01 Less than 8 weeks gestation of pregnancy
CPT/HCPCS: 36415; 80053; 81001; 85025; 86140; 96361; 96374; 99284; A9270; J2405; J7040

== ENCOUNTER 2018-10-22 03:11 | Emergency (ER) | payer SELFPAY ==
[2018-10-22 03:23] VITALS: BP 127/89
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
--- NOTE | 2018-10-24 09:06 | CT ---
Head CT Technique: Multiple axial sections through the brain were obtained. Intravenous contrast was not utilized. Comparison: No prior intracranial imaging is available. Findings: Ventricles along with basal cisterns and sulci over the convexities are within normal limits for the patient's age. No abnormal parenchymal densities are seen. No evidence of intracranial hemorrhage. No midline shift or mass effect is seen. Mild soft tissue swelling is noted within the posterior right scalp. Bone window settings shows no acute calvarial abnormality. Visualized sinuses are clear. Impression: 1. Mild soft tissue swelling within the posterior right scalp. 2. No acute intracranial abnormality or skull fracture is seen. Diagnostic code #2 I agree with preliminary report from [facility], finalized on 10/22/18, 6:06 AM Central Time
== END 2018-10-22 05:49 | disposition home or self-care (01) ==
LOC: JD.ED 03:11
DX: S16.1XXA Strain of muscle, fascia and tendon at neck level, initial encounter (principal); S09.90XA Unspecified injury of head, initial encounter; S00.03XA Contusion of scalp, initial encounter; G44.319 Acute post-traumatic headache, not intractable; Z88.8 Allergy status to other drugs, medicaments and biological substances; W22.8XXA Striking against or struck by other objects, initial encounter
CPT/HCPCS: 70450; 70450-26; 99283; 99285-25